=== PATIENT | female | born 1975 | race American Indian/Alaskan Native ===

== ENCOUNTER 2018-05-22 07:42 | Day surgery (SDC) | payer OTHER ==
[2018-05-22] MEDS ORDERED: NACL 0.9% 1000 ML 1,000 ML IV SCH (08:00)
[2018-05-22] MEDS ORDERED: WATER FOR IRRIG STERILE IR ONE (08:04)
[2018-05-22] MEDS ORDERED: WATER FOR IRRIG STERILE ONE (08:05)
--- NOTE | 2018-05-22 08:08 | Anesthesia Day of Surgery ---
Anesthesia Day of Surgery - Day of Surgery Patient Examined: Yes Patient H&P Reviewed: Yes Patient is NPO: Yes
--- NOTE | 2018-05-22 08:08 | Anesthesia Consultation ---
Anesthesia Consult and Med Hx Date of service: 05/22/18 - Airway Anesthetic Teeth Evaluation: Good ROM Head & Neck: Adequate Mental/Hyoid Distance: Adequate Mallampati Class: Class I Intubation Access Assessment: Good - Pulmonary Exam CTA: Yes - Cardiac Exam Cardiac Exam: RRR - Pre-Operative Health Status ASA Pre-Surgery Classification: ASA1 Proposed Anesthetic Plan: General - Additional Comments Anesthesia Medical History Comments: No previous anesthesia. Negative family hx.
[2018-05-22] MEDS ORDERED: DIPRIVAN 10 MG/ML IV ONE ×2 (08:14)
--- NOTE | 2018-05-22 09:04 | Procedure Note ---
Date of procedure: 05/22/18 Pre-op diagnosis: Colon Polyp Screening/ Strong Family H/O Colon Cancer (mother) Post-op diagnosis: other (Normal Colon Mucosa (no colon polyp,Diverticular Disease,Colitis or Internal Hemorrhoids noted)) Procedure: Colonoscopy Anesthesia: MAC Surgeon: PETER THOMPSON Estimated blood loss: none Pathology: none Condition: stable Disposition: same day (Resume home medication and follow up in 1 to 2 weeks ([phone]).)
--- NOTE | 2018-05-22 09:21 | Operative Report ---
PROCEDURE: Colonoscopy. INDICATIONS: A 42-year-old female with strong family history of cancer. The patient's mother had metastatic colon cancer, which lead to her demise. Her mother had colon cancer at a relatively young age. Maternal aunt had liver cancer. Father had prostate cancer. Colonoscopy was done as part of colon polyp screening to make sure that the patient did not have any colon polyps. DESCRIPTION OF PROCEDURE: The procedure was done after getting informed consent with MAC anesthesia. Initial rectal exam was unremarkable. Instrument was passed through the rectum onto the cecum, which was identified by ileocecal valve and the appendiceal orifice. Visualization was fair to good. The scope was withdrawn up to the hepatic flexure and reintroduced to the cecum and retroflexed. The cecum, ascending colon, transverse colon, descending colon, and sigmoid showed normal mucosa. There was no evidence of any polyps, colitis or diverticular disease and the rectum showed normal mucosa also on the retroverted view. There was no evidence of any internal hemorrhoids. There were no biopsies done and no bleeding associated with the procedure. ASSESSMENT: Colon polyp screening because of strong family history of cancer. The patient's mother had metastatic colon cancer. Aunt had liver cancer. The patient had normal colon mucosa without any evidence of any colon polyps or diverticular disease or any evidence of colitis or internal hemorrhoids. PLAN: To resume previous medication and have the patient follow up in the office in 1-2 weeks' time. RN, Freya Hutchison, was in the room throughout the entirety of the procedure. Again, there was no bleeding or complications associated with the procedure. JOB# [id number] RICCI/[id number]
[2018-05-22 09:30] VITALS: BP 107/69
== END 2018-05-22 07:43 | disposition home or self-care (01) ==
LOC: GIO 07:42
DX: Z12.11 Encounter for screening for malignant neoplasm of colon (principal); K57.30 Diverticulosis of large intestine without perforation or abscess without bleeding; Z80.0 Family history of malignant neoplasm of digestive organs
CPT/HCPCS: 45378; 81025; J2704; J7030